=== PATIENT | female | born 1945 | race Caucasian/White ===

== ENCOUNTER 2018-04-24 12:20 | Emergency (ER) | payer MEDICARE ==
--- NOTE | 2018-04-24 13:02 | EDM.PDOC ---
ED HPI GENERAL MEDICAL PROBLEM - General Chief Complaint: Chest Pain Stated Complaint: CHEST PAINS Time Seen by Provider: 04/24/18 12:35 Source of Information: Reports: Patient, Family, RN Notes Reviewed History Limitations: Reports: No Limitations - History of Present Illness INITIAL COMMENTS - FREE TEXT/NARRATIVE: 72-year-old female presents emergency department day complaint of chest pain, she has had chest pain for 2 weeks it does wax and wane the reason she came in today as the chest pain is much worse than usual. 7 out of 10. She will get short of breath at the peak pain no diaphoresis no nausea vomiting she has no heart history and does not use tobacco products no family history Left Chest Pain Score (Numeric/FACES): 7 - Related Data Allergies Allergy/AdvReac Type Severity Reaction Status Date / Time citalopram [From Celexa] Allergy Tachycardia Verified 04/24/18 12:29 Home Meds: Home Meds NK [No Known Home Meds] 04/24/18 [History] Past Medical History Cardiovascular History: Reports: Heart Murmur Musculoskeletal History: Reports: Arthritis - Past Surgical History Musculoskeletal Surgical History: Reports: Hip Replacement, Shoulder Replacement Social & Family History - Tobacco Use Smoking Status *Q: Never Smoker - Caffeine Use Caffeine Use: Reports: Coffee, Tea - Recreational Drug Use Recreational Drug Use: No ED ROS GENERAL - Review of Systems Review Of Systems: See Below Constitutional: Reports: No Symptoms HEENT: Reports: No Symptoms Respiratory: Reports: Shortness of Breath Cardiovascular: Reports: Chest Pain GI/Abdominal: Reports: No Symptoms : Reports: No Symptoms Musculoskeletal: Reports: No Symptoms Skin: Reports: No Symptoms Neurological: Reports: No Symptoms ED EXAM, GENERAL - Physical Exam Exam: See Below Free Text/Narrative:: General: Female, not in any distress, alert and oriented x3 HEENT: head is atraumatic normocephalic, eyes pupils equal round reactive to light, sclera clear no conjunctivitis appreciated. Ears tympanic membranes clear and parker landmarks and light reflex are present bilaterally canals are clear. Nose no septal deviation, nares are clear, no blood present. Mouth mucosa is moist and pink no erythema or exudate noted in soft palate, tongue is midline uvula is midline, dentition is intact. Neck: Supple no thyromegaly no tracheal deviation. Nodes: Cervical nodes subclavicular nodes nontender no palpable lymphadenopathy noted. Lungs: clear to auscultation bilaterally with symmetrical respirations, no adventitious noise appreciated. CV: Regular rate and rhythm S1 and S2 appreciated no murmurs rubs or gallops noted. Chest she is point tenderness mid axillary line left side underneath the left breast Abdomen: Soft, nontender, no palpable masses or organomegaly appreciated, no distention no guarding bowel sounds are present, . Neuro: Cranial nerves II through XII intact, GCS 15 Skin: Warm and dry, intact no rash bruising noted left chest area Extremities: No lower extremity edema appreciated, pedal pulse is +2. Course - Vital Signs Last Recorded V/S: Last Vital Signs Temp 97.1 F 04/24/18 12:38 Pulse 62 04/24/18 12:38 Resp 18 04/24/18 12:38 BP 187/94 H 04/24/18 12:38 Pulse Ox 99 04/24/18 12:38 - Orders/Labs/Meds Orders: Active Orders 24 hr Category Date Time Status Cardiac Monitoring [RC] .As Directed Care 04/24/18 12:49 Active EKG Documentation Completion [RC] ASDIRECTED Care 04/24/18 12:50 Active Peripheral IV Care [RC] . DIRECTED Care 04/24/18 12:50 Active Sodium Chloride 0.9% [Saline Flush] Med 04/24/18 12:49 Active 10 ml FLUSH ASDIRECTED PRN Peripheral IV Insertion Adult [OM.PC] Stat Oth 04/24/18 12:49 Ordered Saline Lock Insert [OM.PC] Stat Oth 04/24/18 12:49 Ordered EKG 12 Lead [EK] Stat Ther 04/24/18 12:49 Ordered Medication Orders Sodium Chloride (Saline Flush) 10 ml FLUSH ASDIRECTED PRN PRN Reason: Keep Vein Open Last Admin: 04/24/18 13:06 Dose: 10 ml Labs: Laboratory Tests 04/24/18 04/24/18 Range/Units 13:05 13:05 WBC 5.1 (4.5-11.0) K/uL RBC 4.53 (3.30-5.50) M/uL Hgb 13.7 (12.0-15.0) g/dL Hct 42.0 (36.0-48.0) % MCV 93 (80-98) fL MCH 30 (27-31) pg MCHC 33 (32-36) % Plt Count 368 (150-400) K/uL Neut % (Auto) 51 (36-66) % Lymph % (Auto) 34 (24-44) % [place] % (Auto) 14 H (2-6) % Eos % (Auto) 1 L (2-4) % Baso % (Auto) 0 (0-1) % Sodium 138 L (140-148) mmol/L Potassium 3.9 (3.6-5.2) mmol/L Chloride 103 (100-108) mmol/L Carbon Dioxide 24 (21-32) mmol/L Anion Gap 14.9 H (5.0-14.0) mmol/L BUN 10 (7-18) mg/dL Creatinine 0.8 (0.6-1.0) mg/dL Est Cr Clr Drug Dosing 59.51 mL/min Estimated GFR (MDRD) > 60 (>60) Glucose 97 (74-106) mg/dL Calcium 9.0 (8.5-10.1) mg/dL Total Bilirubin 0.7 (0.2-1.0) mg/dL AST 25 (15-37) U/L ALT 32 (12-78) U/L Alkaline Phosphatase 86 (46-116) U/L Troponin I < 0.017 (0.000-0.056) ng/mL Total Protein 7.6 (6.4-8.2) g/dL Albumin 3.6 (3.4-5.0) g/dL Globulin 4.0 H (2.3-3.5) g/dL Albumin/Globulin Ratio 0.9 L (1.2-2.2) Meds: Medications Generic Name Dose Route Start Last Admin Trade Name Freq PRN Reason Stop Dose Admin Sodium Chloride 10 ml 04/24/18 12:49 04/24/18 13:06 Saline Flush FLUSH 10 ml ASDIRECTED PRN Administration Keep Vein Open Discontinued Medications Generic Name Dose Route Start Last Admin Trade Name Freq PRN Reason Stop Dose Admin Aspirin 324 mg 04/24/18 12:55 04/24/18 13:03 Aspirin PO 04/24/18 12:56 324 mg ONETIME ONE Administration Ketorolac Tromethamine 30 mg 04/24/18 12:51 04/24/18 13:03 Toradol IVPUSH 04/24/18 12:52 30 mg ONETIME ONE Administration Departure - Departure Time of Disposition: 14:38 Disposition: Home, Self-Care 01 Condition: Fair Clinical Impression: Chest wall pain Referrals: PCP,None [Primary Care Provider] - Forms: ED Department Discharge Additional Instructions: Continue to use ibuprofen or Tylenol as needed for pain control, Please followup with your primary care provider in 3-5 days if not better, please call return to the emergency department with worsening of symptoms. - My Orders Last 24 Hours: My Active Orders 04/24/18 12:49 Cardiac Monitoring [RC] .As Directed Sodium Chloride 0.9% [Saline Flush] 10 ml FLUSH ASDIRECTED PRN Peripheral IV Insertion Adult [OM.PC] Stat Saline Lock Insert [OM.PC] Stat EKG 12 Lead [EK] Stat 04/24/18 12:50 EKG Documentation Completion [RC] ASDIRECTED Peripheral IV Care [RC] . DIRECTED - Assessment/Plan Last 24 Hours: My Active Orders 04/24/18 12:49 Cardiac Monitoring [RC] .As Directed Sodium Chloride 0.9% [Saline Flush] 10 ml FLUSH ASDIRECTED PRN Peripheral IV Insertion Adult [OM.PC] Stat Saline Lock Insert [OM.PC] Stat EKG 12 Lead [EK] Stat 04/24/18 12:50 EKG Documentation Completion [RC] ASDIRECTED Peripheral IV Care [RC] . DIRECTED Plan: Assessment Acuity = acute Site and laterality = chest wall pain Etiology = unclear etiology Manifestations = none Location of injury = Home Lab values = CBC, CMP unremarkable troponin was negative EKG demonstrates sinus rhythm no ST elevations or depressions she does have a right bundle branch block she is unsure if she's ever heard of this before no old EKGs were available, chest x-ray shows no acute process Plan She had good relief from the Toradol injection provided plan is discharge home she'll follow-up with her primary care the next 3-5 days for reevaluation This note was dictated using [employer] voice recognition software please call with any questions on syntax or grammar.
[2018-04-24] MEDS: Ketorolac 30 MG/ML SDV IVPUSH ONE (13:03)
[2018-04-24] MEDS: Aspirin 81 MG Tab.Chew PO ONE (13:03)
[2018-04-24] MEDS: Sodium Chloride 0.9% 10 ML Syringe FLUSH PRN (13:06)
--- NOTE | 2018-04-24 14:06 | CRLCR ---
INDICATION: Chest pain. TECHNIQUE: Two-view chest. COMPARISON: None. FINDINGS: Both lungs are mildly hyperinflated but clear. Attenuation of the pulmonary vascularity in the upper lobes. Normal heart size. No pleural effusions. Bilateral total shoulder arthroplasties. Resection or erosion of the distal left clavicle. IMPRESSION: No acute cardiopulmonary process identified. Dictated by Wesly Becker MD @ Apr 24 2018 2:03PM Signed by Dr. Wesly Becker @ Apr 24 2018 2:03PM
== END 2018-04-24 14:56 | disposition home or self-care (01) ==
LOC: MERGE 12:20 → JP.ED 12:20
DX: R07.89 Other chest pain (principal); Z88.8 Allergy status to other drugs, medicaments and biological substances
CPT/HCPCS: 36415; 71046; 80053; 84484; 85025; 93005; 96374; 99285; A9270; J1885

== ENCOUNTER 2022-04-16 08:07 | Day surgery (SDC) | payer MEDICARE ==
[2022-04-16] MEDS ORDERED: Sodium Chloride 0.9% 10 ML Syringe FLUSH PRN (08:45)
== END 2022-04-16 09:12 | disposition home or self-care (01) ==
LOC: JP.SDS 08:07
PROVIDERS: ATTEND Ophthalmology
DX: H26.9 Unspecified cataract (principal); M19.90 Unspecified osteoarthritis, unspecified site; I50.9 Heart failure, unspecified; Z88.8 Allergy status to other drugs, medicaments and biological substances
CPT/HCPCS: 66984; J3490